=== PATIENT | female | born 1950 | race Caucasian/White ===

== ENCOUNTER 2020-05-05 15:26 | Outpatient (CLI) | payer MEDICARE, SELFPAY ==
--- NOTE | ~2020-05-05 | US_ITS ---
EXAMINATION: US thyroid DATE: 05/05/2020 16:25 INDICATION: Thyroid nodule TECHNIQUE: Multiple ultrasound images of the thyroid were obtained. COMPARISON: None. FINDINGS: The right thyroid lobe measures 5.3 x 2.5 x 1.9 cm. The left thyroid lobe measures 5.0 x 2.0 x 1.5 c m. The thyroid isthmus measures 5 mm in thickness. Bilateral solid hypoechoic nodules each measuring 8 mm in maximal diameter which are wider than tall with smooth margins and without echogenic foci. (T I-RADS 4, moderately suspicious , FNA if >=1.5 cm, annual followup is >1 cm). There is heterogeneous echogenicity with coarsened echotexture throughout the thyroid. IMPRESSION: 1. A couple bilateral subcentimeter TI RADS 4 nodules which do not meet criteria for biopsy or follow -up. Reviewed, dictated and finalized at location A. IMPRESSION: 1. A couple bilateral subcentimeter TI RADS 4 nodules which do not meet criteri a for biopsy or follow-up.
== END 2020-05-05 15:27 | disposition home or self-care (01) ==
PROVIDERS: PCP Family Medicine; Visit Provider Otolaryngology
DX: E04.1 Nontoxic single thyroid nodule (principal); R09.89 Other specified symptoms and signs involving the circulatory and respiratory systems; R13.10 Dysphagia, unspecified
CPT/HCPCS: 76536